=== PATIENT | male | born 1965 | race Caucasian/White ===

== ENCOUNTER 2022-11-06 10:22 | Day surgery (SDC) | payer OTHER ==
[2022-11-05 10:43] LABS: COVID AG,FIA SOURCE NASOPHARYNGEAL
[~2022-11-06] VITALS: Ht 167.6 cm; Wt 145.2 kg
[~2022-11-06 10:22] MED LIST: ASPI-1450 PO; ATOR40TA28 PO; CLOT15CR29 TP; DULA1.5P SQ; GABA-1181 PO; LISI-894 PO; MELO-381 PO; METF-1211 PO; NAPR-1025 PO; NITR25OR7 PO; NYST30CR9 TP; PIOG15TA6 PO; SITA50 PO; [UNRECOGNIZED DRUG - CODE] PO
[2022-11-06] MEDS ORDERED: PROPOFOL 1% 20 ML VIAL IVP ONE (10:23)
[2022-11-06] MEDS ORDERED: LIDOCAINE/PF 2% 5 ML SYRINGE IVP ONE (10:23)
[2022-11-06] MEDS ORDERED: PIOG15TA6 PO (10:48)
[2022-11-06] MEDS ORDERED: BACL10TA PO (10:48)
[2022-11-06 11:31] LABS: GLUCOMETER DEV NAME(LOC) SDS.; GLUCOSE,POINT OF CARE 92 MG/DL (70-110)
[2022-11-06] MEDS ORDERED: SODIUM CHLORIDE 0.9% 1,000 ML IV ONE (12:30)
== END 2022-11-06 14:30 | disposition home or self-care (01) ==
LOC: SURGERY 10:22
PROVIDERS: ATTEND Internal Medicine Gastroenterology
DX: Z12.11 Encounter for screening for malignant neoplasm of colon (principal); K63.5 Polyp of colon; K57.30 Diverticulosis of large intestine without perforation or abscess without bleeding; K64.8 Other hemorrhoids; Z79.899 Other long term (current) drug therapy; G47.30 Sleep apnea, unspecified; M17.11 Unilateral primary osteoarthritis, right knee; G47.33 Obstructive sleep apnea (adult) (pediatric); I10 Essential (primary) hypertension; Z20.822 Contact with and (suspected) exposure to COVID-19
CPT/HCPCS: 45385; 45380; 87426; 82962; 88305; C9803; C1769; J2704; J3490